=== PATIENT | female | born 1945 | race Caucasian/White ===

== ENCOUNTER 2020-09-26 22:23 | Emergency (ER) | payer OTHER ==
[2020-09-27] MEDS ORDERED: MEDROL 4MG DOSEP4 MG PO (00:32)
[2020-09-27] MEDS ORDERED: MOBIC7.5 MG PO (00:32)
[2020-09-27] MEDS ORDERED: PERCOCET 5-3251 EACH PO (00:32)
[2020-09-27] MEDS ORDERED: ROBAXIN500 MG PO (00:32)
== END 2020-09-27 00:55 | disposition home or self-care (01) ==
LOC: FER 22:23
DX: M54.41 Lumbago with sciatica, right side (principal); I10 Essential (primary) hypertension; Z90.49 Acquired absence of other specified parts of digestive tract; Z85.038 Personal history of other malignant neoplasm of large intestine
CPT/HCPCS: J1100; J1170; J1885; J2405; J2800; J7050